=== PATIENT | male | born 1970 | race Caucasian/White ===

== ENCOUNTER 2019-08-30 05:44 | Emergency (ER) | payer OTHER ==
[~2019-08-30] VITALS: Ht 170.2 cm; Wt 75.3 kg
[2019-08-30 05:44] VITALS: BP_SYST 125
--- NOTE | 2019-08-30 05:44 | NUR ---
Patient to ER bed 06 to gown for evaluation. Side rails up. Report given to EMERY Craig.
--- NOTE | 2019-08-30 05:55 | NUR ---
ER at bedside examining patient.
[2019-08-30 06:38] LABS: BASOPHILS # (AUTO) 0.1 K/uL (0.0-0.2); BASOPHILS % (AUTO) 0.5 % (0.0-2.0); EOSINOPHILS % (AUTO) 0.1 % (0.0-4.0); HEMOGLOBIN 14.5 g/dL (14.0-18.0); LYMPHOCYTES # (AUTO) 0.4 K/uL (1.0-5.5); LYMPHOCYTES % (AUTO) 1.9 % (20.5-51.5); MEAN CORPUSCULAR HEMOGLOBIN 30 pg (27-31); MEAN CORPUSCULAR HGB CONC 33 % (32-36); MEAN CORPUSCULAR VOLUME 92 fL (79.0-98.0); MONOCYTES # (AUTO) 1.3 K/uL (0.0-1.0); MONOCYTES % (AUTO) 5.3 % (1.7-9.3); NEUTROPHILS # (AUTO) 21.9 K/uL (1.8-7.7); NEUTROPHILS % (AUTO) 92.2 % (40.0-70.0); PLATELET COUNT (AUTO) 276 K/uL (130-430); RED BLOOD CELL COUNT(AUTO) 4.78 MIL/uL (4.2-6.2); RED CELL DISTRIBUTION WIDTH 13.9 % (9.0-15.0); WHITE BLOOD COUNT (AUTO) 23.7 K/uL (4.8-10.8)
[2019-08-30 06:49] LABS: ANION GAP 7 (5-15); CALCIUM 8.7 mg/dL (8.4-11.0); CHLORIDE 104 mmol/L (98-107); CREATININE 1.36 mg/dL (0.55-1.30); GLUCOSE 89 mg/dL (70-99); POTASSIUM 3.6 mmol/L (3.5-5.1); SODIUM SERUM 140 mmol/L (136-145); UREA NITROGEN, BLOOD 14 mg/dL (8-21)
[2019-08-30 06:54] LABS: GFR AFRICAN AMERICAN 71 mL/min (>90)
[2019-08-30 07:03] LABS: ALANINE AMINOTRANSFERASE 35 U/L (12-78); ALBUMIN 4.2 g/dL (3.4-4.8); ASPARTATE AMINOTRANSFERASE 37 U/L (10-37); TOTAL BILIRUBIN 0.6 mg/dL (0.0-1.0)
[2019-08-30 07:28] LABS: ALCOHOL, BLOOD < 3 mg/dL (<10)
[2019-08-30] MEDS ORDERED: NACL 0.9% 1,000 ML IV ONE (07:30)
--- NOTE | 2019-08-30 07:30 | NUR ---
Patient refused IV start twice. aware.
--- NOTE | 2019-08-30 08:30 | NUR ---
Patient is sleeping comfortably in bed, respirations even and unlabored, denied any distress at this time.
--- NOTE | 2019-08-30 09:39 | NUR ---
Patient still refused IV medication therapy and refused to provide urine sample. MD capellan.
[2019-08-30 10:09] LABS: BILIRUBIN,URINE NEGATIVE (NEGATIVE); BLOOD, URINE 2+ (NEGATIVE); COLOR,URINE YELLOW (YELLOW); GLUCOSE,URINE NEGATIVE (NEGATIVE); KETONES,URINE 1+ (NEGATIVE); LEUKOCYTE ESTERASE ,URINE NEGATIVE (NEGATIVE); NITRITE, URINE NEGATIVE (NEGATIVE); PH,URINE 5.5 (5.0-8.0); PROTEIN URINE 2+ (NEGATIVE); UROBILINOGEN,URINE 0.2 (0.2-1.0)
[2019-08-30 10:20] LABS: CLARITY/URINE HAZY (CLEAR)
[2019-08-30 10:22] LABS: BACTERIA,URINE MODERATE /HPF (None Seen); BARBITURATE, URINE NEGATIVE (NEG <=200); BENZODIAZEPINE, URINE NEGATIVE (NEG <=150); CANNABINOID, URINE POSITIVE (NEG <=50); COCAINE, URINE NEGATIVE (NEG <=150); METHAMPHETAMINES SCREEN,URINE POSITIVE (NEG <=500); OPIATE, URINE NEGATIVE (NEG <=100); PHENCYCLIDINE SCREEN,URINE POSITIVE (NEG <=25); UR TRICYCLIC ANTIDEPRESSANTS NEGATIVE (NEG <=300); URINE AMPHETAMINE POSITIVE (NEG <=500); URINE METHADONE NEGATIVE (NEG <=200); URINE OXYCODONE SCREEN NEGATIVE (NEG <=100); URINE PROPOXYPHENE SCREEN NEGATIVE (NEG <=300); WBC,URINE 0-3 /HPF (0-3)
[2019-08-30] MEDS ORDERED: cefTRIAXone 1 GM in LIDOCAINE 1%, 20 ML MDV 2.1 ML IM ONE (10:30)
--- NOTE | 2019-08-30 10:42 | NUR ---
Administered Rocephin IM as ordered by Dr. Sarabia. Patient tolerated the medications well. See eMAR for details.
--- NOTE | 2019-08-30 11:30 | NUR ---
Patient refused to be discharged, security at bedside. No respiratory distress noted, respirations even and unlabored, ambulating with a steady gait. MD aware.
--- NOTE | 2019-08-30 11:32 | NUR ---
Patient given written and verbal discharge instructions, refused to be discharged. Security personnel at bedside. ER MD discussed with patient the results and treatment provided. Patient in stable condition, able to ambulate with a steady gait. ID arm band removed. Rx of Cipro given. Patient educated on pain management and to follow up with PMD. Pain Scale 0/10. Opportunity for questions provided and answered. Medication side effect fact sheet provided.
[2019-08-30 11:39] VITALS: BP_SYST 138
== END 2019-08-30 11:39 | disposition home or self-care (01) ==
LOC: SED 05:44
DX: S40.212A Abrasion of left shoulder, initial encounter (principal); F19.10 Other psychoactive substance abuse, uncomplicated; N39.0 Urinary tract infection, site not specified; X58.XXXA Exposure to other specified factors, initial encounter; Y93.89 Activity, other specified; Y92.89 Other specified places as the place of occurrence of the external cause; Y99.8 Other external cause status
CPT/HCPCS: 36415; 71045; 73030; 80053; 80307; 81000; 85025; 87086; 96372; 99284; G0482; J0696; J2001